=== PATIENT | female | born 1990 | race Caucasian/White ===

== ENCOUNTER 2024-11-03 08:55 | Inpatient (IN) | payer BC, SELFPAY ==
[2024-11-03] VITALS (60 sets, daily range): BP systolic 95–146; BP diastolic 51–87; PULSE 85–124; RESP 16–99; TEMP 36.5–36.8; O2SAT 86–100; BMI 34.7
[2024-11-03 09:47] LABS: Basophils % (Auto) 1 % (0-2.5); Eosinophils # (Auto) 0.2 Thou/mm3 (0.0-0.5); Eosinophils % (Auto) 3 % (0-10); Hematocrit 36.3 % (36.0-46.0); Hemoglobin 12.6 g/dL (12.0-16.0); Immature Granulocytes % (Auto) 0 % (0-0); Immature Granulocytes Auto 0.02 Thou/mm3 (0.00-0.00); Lymphocytes # (Auto) 0.9 Thou/mm3 (1.0-4.8); Lymphocytes % (Auto) 13 % (10-50); Mean Corpuscular HGB Conc 34.7 g/dl (31.0-37.0); Mean Corpuscular Hemoglobin 28.8 pg (25.0-35.0); Mean Corpuscular Volume 83 fL (80-100); Monocytes # (Auto) 0.4 Thou/mm3 (0.0-0.8); Monocytes % (Auto) 6 % (0-12); Neutrophils # (Auto) 5.7 Thou/mm3 (1.8-7.7); Neutrophils % (Auto) 78 % (37-80); Nucleated Red Blood Cell % 0 /100 WBC (0); Platelet Count 261 Thou/mm3 (140-440); RDW Standard Deviation 46.2 fL (36.4-46.3); Red Blood Count 4.38 Miln/mm3 (4.00-5.20); White Blood Count 7.3 Thou/mm3 (3.6-11.0)
[2024-11-03] MEDS: RINGERS LACTATED 1000 ML 1,000 ML 100 ML IV (09:55)
[2024-11-03 10:24] LABS: Syphilis Nonreactive (Nonreactive)
[2024-11-03] MEDS: fentaNYL CIT INJ 50 mCg/ML AMP 2ML 100 MCG IVP (10:40)
--- NOTE | 2024-11-03 11:23 | PD.LDHP ---
Documentation for date of: 11/03/24 OB Labor/Induct. HPI History of Present Illness Chief complaint: Labor pains : 4 Para: 2 Term pregnancies: 2 pregnancies: 0 Living children: 2 History of Abortions: Spontaneous and Elective: 1 History of Vaginal deliveries: 2 History of sections: No History of : No Date of last menstrual period: 11/04/23 YVONNE: 11/05/24 Gestational Age (weeks): 39 Gestational Age (days): 5 Gestational age based on last menstrual period: 51 History of Present Adequate Care: Yes Labs Labs: Positive: Rubella Titre, Negative: RPR, Hepatitis B, HIV, Chlamydia, Gonorrhea and Group Beta Strep and Unknown: Herpes Type 1, Herpes Type 2 and Covid-19 Past Medical History Surgical History SURGICAL: Negative Section Meds Home Medications and Allergies Home Medications ?Medication ?Instructions ?Recorded ?Confirmed ?Type vits no.129-ferrous fum tab 11/03/24 History 27 mg iron-folic acid 800 mcg tablet ( One Daily) Allergies Allergy/AdvReac Type Severity Reaction Status Date / Time No Known Allergies Allergy Verified 11/03/24 09:31 OB Exam Physical Exam Vital signs: Temp Pulse Resp BP Pulse Ox 97.7 F 97 18 102/56 L 98 11/03/24 09:39 11/03/24 11:21 11/03/24 09:39 11/03/24 11:21 11/03/24 11:18 Routine HEENT Exam Comments: Oropharynx and sclera clear Routine Respiratory Exam Comments: Clear to auscultation bilaterally Routine Cardiovascular Exam Comments: Regular rate and rhythm Routine Abdominal Exam Comments: Gravid term size consistent with estimated weight 7-1/2 pounds Detailed Labor and Delivery Exam Dilation (cm): 8 Effacement (%): 100 station: 0 Presentation: Vertex Membranes: ruptured Routine Extremities Exam Comments: Nontender Routine Skin Exam Comments: No gross rashes or lesions Routine Neurological Exam Comments: No focal deficit OB Results Labs 11/03/24 09:30 Labs: Short CBC 11/03/24 Range/Units 09:30 WBC 7.3 (3.6-11.0) Thou/mm3 Hgb 12.6 (12.0-16.0) g/dL Hct 36.3 (36.0-46.0) % Plt Count 261 (140-440) Thou/mm3 Impressions Impression: IUP at 39 weeks and 5 days Active labor Anticipate spontaneous vaginal delivery:Informed consent was obtained: The patient made aware of the risk complication alternative benefits of the of operative vaginal delivery and delivery and agrees with these modes of delivery if indicated
[2024-11-03] MEDS: LIDOCAINE HCL 1% 20 ML VIAL INFL (12:31)
[2024-11-03] MEDS: BENZO/LANO/ALOE (Dermoplast) 60 GM CAN 1 SPRAY TOP (12:31)
[2024-11-03] MEDS: OXYTOCIN in NS 20 units 20 UNIT/1,000 ML BAG 125 UNIT IV (12:31)
[2024-11-03] MEDS: IBUPROFEN TAB 400 MG TABLET 800 MG PO ×2 (12:33→19:15)
--- NOTE | 2024-11-03 12:39 | OBDSUM_ITS ---
Shoulder Dystocia General Time head delivered:: 11:57 Traction performed:: none at any time Maneuvers/Procedures Rah: Order Maneuver Performed:: 1 Time begun:: :57 Time ended:: : Performed by:: Team Was fundal Pressure applied? Fundal pressure applied:: No Shoulder Under Symphisis at head delivery:: left Immediate Assessment Immediate assessment:: no apparent injury Surgical Team Notified Surgical team notified:: Yes Vacuum Assisted Delivery General Patient Counseled by physician:: Yes Informed consent to patient:: Yes Estimated weight:: 7 lb 8 oz Cervical dilation:: fully dilated station:: +3 position:: OA Molding:: No Caput:: No Vacuum Application Vacuum type:: Mityvac Vacuum application:: flexing median Total vacuum time (min):: 1 Maximum pressure (cm Hg):: 50 Cup Placement Flexion point identified:: Yes Cup approp. for head position:: Yes Maternal tissue excluded:: Yes Vacuum Procedure Number of pulls (contractions):: 1 Number of pop-offs:: 0 Recommended range maintained:: Yes Vacuum reduced between pulls:: Yes Advancement made each pull:: Yes Vacuum successful:: Yes Immediate Evaluation Immediate assessment:: no apparent injury Hand-off care to:: nursery nurse (and RT and Lead Javascript Developer) Data ([facility]) Data Hx Section: No : 4 Term: 2 : 0 Livin Abortions: Spontaneous & Theraputic: 1 Delivery Data ([facility]) Labor Data Initiation of labor: Spontaneous Induction/Augmentation Agent: None ROM date: 11/03/24 ROM time: 10:10 Amniotic membrane rupture type: Spontaneous Amniotic fluid description: Clear Delivery Data EDC: 11/05/24 EDC calculated by:: LMP/early US confirmation Onset of labor date: 11/03/24 Onset of labor time: 02:00 Complete dilation date: 11/03/24 Complete dilation time: 11:40 delivery date: 11/03/24 [place] delivery time: 11:58 Gestational age (weeks): 39 Gestational age (days): 5 Placenta delivery date: 11/03/24 Placenta delivery time: 12:14 Stage 1 total time: Labor - Stage 1 Duration 9 hours and 40 minutes Delivered by: GEILING Delivery nurse: Rebeca WASHINGTON RN [place] nurse: Rebeca PEREZ RN Lead Javascript Developer at delivery: No Support person(s) at delivery: FOB Other staff at delivery: POWDER PRESS OPERATOR: Alex HARRELL RNC Delivery Method Delivery method: Operative Vaginal Delivery Presentation: Vertex position: OA Anesthesia Type Anesthesia Type: Local and Spinal Placenta Placenta delivery description: Spontaneous Placenta Disposition: Sent to Pathology Cord blood sent to lab: Yes cord blood collection: Cord Blood Type, Arterial Cord Blood Gas and Venous Cord Blood Gas Episiotomy Episiotomy description: None Lacerations #1: Vaginal: 1st degree Perineal repair Sutures used for repair: 3.0 Chromic EBL Estimated blood loss (ml): 200 Umbilical Cord cord description: 3 Vessels Additional Procedures Vacuum assisted vaginal delivery with MityVac Complications Complications: Shoulder Dystocia [place] Data ([facility]) Data order: 1 's gender: Male Identification band number: [id number] weight (gms): 7 lb 14.634 oz Weight (pounds): 7 lbs and 14.6 ozs [place] length: 22.05 in 1 minute: 6 5 minutes: 8
--- NOTE | 2024-11-03 12:39 | PD.LDDS ---
DS: Providers Provider Date of admission: 11/03/24 09:11 Primary care physician: Physician No Primary/Family Admitting Provider: Rajinder Buchanan MD Attending Provider on Admission: Rajinder Buchanan MD Attending Provider on DC: Rajinder Buchanan MD Discharging Provider: Rajinder Buchanan MD DS: Diagnosis Problem List Completed Was Problem List Reviewed/Reconciled?: Yes Summary/Hosp Course Peripartum Data Delivery Method: Operative Vaginal Delivery Episiotomy Description: None Time Spent with Patient Time attestation: Total time spent providing and/or coordinating discharge services: Exam Vital Signs Temp Pulse Resp BP Pulse Ox 97.7 F 110 H 18 145/65 H 88 L 11/03/24 09:39 11/03/24 12:28 11/03/24 09:39 11/03/24 12:28 11/03/24 11:57 Discharge Plan Plan Patient Disposition: HOME (Self Care) Patient condition on transfer: Stable Care Plan Goals: MAKE AN APPOINTMENT WITH DR BUCHANAN IN 6 WKS OR INDICATED BY DOCTOR Prescriptions/Referrals Prescriptions/Med Rec: New ibuprofen 600 mg tablet 600 mg PO Q6H PRN (Reason: pain) Qty: 30 0RF Continued One Daily 27 mg iron- 800 mcg tablet Patient Comments: Take 1 tablet by mouth once a day Referrals: No Primary/Family,Physician [Primary Care Provider] - Patient/Caregiver Discharge Instructions Discharge Activity: activity as tolerated Other Discharge Activity Instructions:: Follow up office 6 week. Education Materials: After Delivery Concerns, Breast Care After , Understanding Depression, : Caring for Yourself, Feel Healthy After Print Language: Brazilian Stand Alone Forms: Keke Award Info., Patient Portal Info Letter Discharge Order Discharge Orders: Discharge (Routine); Ordered 11/04/24 Ordered By: Hari Zamora Planned Discharge Date 11/04/24
[2024-11-03 18:25] LABS: Basophils # (Auto) 0.1 Thou/mm3 (0.0-0.2); Basophils % (Auto) 0 % (0-2.5); Eosinophils % (Auto) 0 % (0-10); Hematocrit 34.1 % (36.0-46.0); Hemoglobin 11.8 g/dL (12.0-16.0); Immature Granulocytes % (Auto) 0 % (0-0); Immature Granulocytes Auto 0.05 Thou/mm3 (0.00-0.00); Lymphocytes # (Auto) 0.8 Thou/mm3 (1.0-4.8); Lymphocytes % (Auto) 7 % (10-50); Mean Corpuscular HGB Conc 34.6 g/dl (31.0-37.0); Mean Corpuscular Hemoglobin 28.7 pg (25.0-35.0); Mean Corpuscular Volume 83 fL (80-100); Monocytes # (Auto) 0.6 Thou/mm3 (0.0-0.8); Monocytes % (Auto) 5 % (0-12); Neutrophils # (Auto) 9.7 Thou/mm3 (1.8-7.7); Neutrophils % (Auto) 87 % (37-80); Nucleated Red Blood Cell % 0 /100 WBC (0); Platelet Count 221 Thou/mm3 (140-440); RDW Standard Deviation 45.7 fL (36.4-46.3); Red Blood Count 4.11 Miln/mm3 (4.00-5.20); White Blood Count 11.1 Thou/mm3 (3.6-11.0)
[2024-11-04] VITALS: BP 118/78; PULSE 94; RESP 18; TEMP 36.3; O2SAT 97
[2024-11-04 04:30] VITALS: BP 117/82; PULSE 89; RESP 17; TEMP 36.6; O2SAT 98
[2024-11-04] MEDS: IBUPROFEN TAB 400 MG TABLET 800 MG PO (04:45)
[2024-11-04 08:00] VITALS: BP 103/68; PULSE 89; RESP 18; TEMP 36.7; O2SAT 96
--- NOTE | 2024-11-04 11:19 | ESPR_ITS ---
Subjective Subjective Interval history: Delivery type: Vacuum assisted OVD Patient doing well this morning. No acute complaints. Ambulating, tolerating p.o. and voiding without difficulty. HTN/Pre-Eclampsia screen: No chest pain, shortness of breath, headache, visual changes, epigastric or right upper quadrant pain. Breast-feeding, lochia diminishing. Bowel: Flatus+/ BM+ Exam Vital Signs Temp Pulse Resp BP Pulse Ox O2 Del Method 98.0 F 89 18 103/68 96 Room Air 11/04/24 08:00 11/04/24 08:00 11/04/24 08:00 11/04/24 08:00 11/04/24 08:00 11/04/24 08:00 Constitutional Constitutional: no acute distress Routine HEENT Exam Head: Present normocephalic and atraumatic Eye: Present EOMI and PERRL ENT: Present mucous membranes moist Routine Neck Exam Neck: Present supple and trachea midline Routine Respiratory Exam Respiratory: Present chest non-tender, lungs clear, normal breath sounds and no resp distress Routine Cardiovascular Exam Cardiovascular: Present RRR Routine Abdominal Exam Abdominal: Present soft and normoactive bowel sounds Routine Extremities Exam Extremities: Present full ROM Routine Skin Exam Skin: Present intact, dry and warm Routine Neurological Exam Neurological: Present alert, oriented X3 and CN II-XII intact Routine Psychiatric Exam Psychiatric: Present normal affect and normal thought process Objective Labs 11/03/24 18:00 Labs: Laboratory Results - last 24 hr 11/03/24 11/03/24 11/03/24 09:30 15:50 18:00 WBC 11.1 H D RBC 4.11 Hgb 11.8 L Hct 34.1 L MCV 83 MCH 28.7 MCHC 34.6 RDW Std Deviation 45.7 Plt Count 221 D Neut % (Auto) 87 H Lymph % (Auto) 7 L [place] % (Auto) 5 Eos % (Auto) 0 Baso % (Auto) 0 Neut # (Auto) 9.7 H Lymph # (Auto) 0.8 L [place] # (Auto) 0.6 Eos # (Auto) 0.0 Baso # (Auto) 0.1 Immature Gran # (Auto) 0.05 H Absolute Nucleated RBC 0.00 Immature Gran % 0 Nucleated RBC % 0 Blood Type O Negative Rho(D) IG Studies Ready Antibody Screen NEGATIVE Maternal Bleed Negative Assessment & Plan Problem List (1) care following vaginal delivery: Status: Acute Assessment and plan: 1. Continue routine /post-op care 2. Labs reviewed, cbc appropriate 3. Remove dressing/[place] 4. Encourage to ambulate, shower 5. Encourage PO intake, breast feeding (2) Status post vacuum-assisted vaginal delivery: Status: Acute (3) GDM, class A1: Status: Acute (4) Rh negative status during : Status: Acute Time Spent With Patient Time: Total time spent is greater than 50% in coordination of care (as documented) at patient's floor/unit and/or counseling patient:
--- NOTE | 2024-11-04 11:21 | ESDS_ITS ---
DS: Providers Provider Date of admission: 11/03/24 09:11 Primary care physician: Physician No Primary/Family Admitting Provider: Rajinder Buchanan MD Attending Provider on Admission: Hari Zamora MD Consults: 11/03/24 13:55 Referral Routine Comment: Attending Provider on DC: Hari Zamora MD Discharging Provider: Hari Zamora MD DS: Diagnosis Discharge Diagnosis (1) Status post vacuum-assisted vaginal delivery: Status: Acute (2) care following vaginal delivery: Status: Acute (3) Unfavorable cervix in term : Status: Acute Problem List Completed Was Problem List Reviewed/Reconciled?: Yes Summary/Hosp Course Peripartum Data Delivery Method: Operative Vaginal Delivery Episiotomy Description: None Time Spent with Patient Time attestation: Total time spent providing and/or coordinating discharge services: Exam Vital Signs Temp Pulse Resp BP Pulse Ox O2 Del Method 98.0 F 89 18 103/68 96 Room Air 11/04/24 08:00 11/04/24 08:00 11/04/24 08:00 11/04/24 08:00 11/04/24 08:00 11/04/24 08:00 Discharge Plan Plan Patient Disposition: HOME (Self Care) Patient condition on transfer: Stable Prescriptions/Referrals Prescriptions/Med Rec: New ibuprofen 600 mg tablet 600 mg PO Q6H PRN (Reason: pain) Qty: 30 0RF Continued One Daily 27 mg iron- 800 mcg tablet Patient Comments: Take 1 tablet by mouth once a day Referrals: No Primary/Family,Physician [Primary Care Provider] - Patient/Caregiver Discharge Instructions Discharge Activity: activity as tolerated Other Discharge Activity Instructions:: Follow up office 6 week. Education Materials: After Delivery [place] Concerns, Breast Care After , : Caring for Yourself, Feel Healthy After Print Language: Andorran Stand Alone Forms: Keke Award Info., Patient Portal Info Letter Discharge Order Discharge Orders: Discharge (Routine); Ordered 11/04/24 Ordered By: Hari Zamora Planned Discharge Date 11/04/24
[2024-11-04 15:17] VITALS: BP 118/79; PULSE 89; RESP 18; TEMP 36.7; O2SAT 96
--- NOTE | 2024-11-04 15:19 | PC.NURSE ---
Rhogam given unit # [id number]. exp date 10/28/2026. Given to right deltoid pt tolerated well no complications
[2024-11-04 15:26] VITALS: BP 118/79; PULSE 89; RESP 18; TEMP 36.8; O2SAT 97
== END 2024-11-04 15:35 | disposition home or self-care (01) | DRG 807 ==
LOC: S4SX 12:35 → S4NX 14:38
PROVIDERS: Admitting Provider Specialist; Visit Provider Obstetrics & Gynecology
DX: O66.0 Obstructed labor due to shoulder dystocia (principal); Z37.0 Single live birth; O70.0 First degree perineal laceration during delivery; O24.420 Gestational diabetes mellitus in childbirth, diet controlled; O26.893 Other specified pregnancy related conditions, third trimester; Z3A.39 39 weeks gestation of pregnancy; Z67.91 Unspecified blood type, Rh negative
CPT/HCPCS: 36415; 59025; 85025; 85461; 86780; 86850; 86900; 86901; J2590; J2790; J2795; J3010; J3490; J7120; A9270